=== PATIENT | female | born 1995 | race Two or more races ===

== ENCOUNTER 2023-10-02 12:33 | Observation (INO) | payer MEDICAID, SELFPAY ==
[~2023-10-02] VITALS: Ht 165.1 cm; Wt 77.1 kg
[2023-10-02] MEDS ORDERED: LACTATED RINGER'S 1,000 ML IV ONE (16:00)
[2023-10-02] MEDS ORDERED: PREN1PAK8 PO (16:27)
== END 2023-10-02 16:43 | disposition home or self-care (01) ==
LOC: LDRP 12:33 → UNDOADMOB 12:33 → LDRP 12:51 → UNDODISOB 16:43
PROVIDERS: ADMIT Obstetrics & Gynecology; ATTEND Obstetrics & Gynecology
DX: O69.81X0 Labor and delivery complicated by cord around neck, without compression, not applicable or unspecified (principal); O62.9 Abnormality of forces of labor, unspecified; Z3A.36 36 weeks gestation of pregnancy
CPT/HCPCS: 59025; 76818; 81002; 96360; 96361; G0378

== ENCOUNTER 2023-10-04 12:17 | Observation (INO) | payer SELFPAY ==
[~2023-10-04 12:17] MED LIST: PREN1PAK8 PO
== END 2023-10-04 16:12 | disposition home or self-care (01) ==
LOC: LDRP 12:17 → UNDOADMOB 12:17 → LDRP 14:32 → UNDODISOB 16:12
PROVIDERS: ADMIT Obstetrics & Gynecology; ATTEND Obstetrics & Gynecology
DX: O69.81X0 Labor and delivery complicated by cord around neck, without compression, not applicable or unspecified (principal); O62.9 Abnormality of forces of labor, unspecified; Z3A.36 36 weeks gestation of pregnancy
CPT/HCPCS: 59025; 76818; 81002; 94760; G0378

== ENCOUNTER 2023-10-11 14:00 | Observation (INO) | payer SELFPAY | END 2023-10-11 16:41 | disposition home or self-care (01) | LOC: UNDOADMOB 14:00 → LDRP 14:00 → UNDODISOB 16:41 | PROVIDERS: ADMIT Obstetrics & Gynecology; ATTEND Obstetrics & Gynecology | DX: O62.9 Abnormality of forces of labor, unspecified (principal); Z3A.38 38 weeks gestation of pregnancy | CPT/HCPCS: 59025; 76818; 81002; 94760; G0378 ==

== ENCOUNTER 2023-10-18 15:15 | Observation (INO) | payer SELFPAY | END 2023-10-18 18:00 | disposition home or self-care (01) | LOC: LDRP 15:15 | PROVIDERS: ADMIT Obstetrics & Gynecology; ATTEND Obstetrics & Gynecology | DX: O69.81X0 Labor and delivery complicated by cord around neck, without compression, not applicable or unspecified (principal); Z3A.39 39 weeks gestation of pregnancy; Z87.891 Personal history of nicotine dependence | CPT/HCPCS: 59025; 76818; 81002; 94760; G0378 ==

== ENCOUNTER 2023-10-20 20:27 | Inpatient (IN) | payer SELFPAY ==
[~2023-10-20] VITALS: Ht 170 cm; Wt 97.5 kg
[2023-10-20] MEDS ORDERED: LIDOCAINE 2%HCL (LOCAL ANESTH.) INJ 20ML MDV IJ PRN (21:45)
[2023-10-20] MEDS ORDERED: BUTORPHANOL TARTRATE 2 MG/1 ML VIAL IV PRN ×2 (21:45)
[2023-10-20 22:08] LABS: Urine Bacteria FEW /hpf (None Seen); Urine Blood Negative /uL (Negative); Urine Clarity Clear (Clear); Urine Color Light-Yellow (Yellow); Urine Mucus FEW (None Seen); Urine Protein, UAD Negative (Negative); Urine Specific Gravity 1.013 (1.001-1.035); Urine Urobilinogen Normal (Negative); Urine WBC 1 /hpf (0 - 5); Urine pH 6.5 (5.0-9.0)
[2023-10-20 22:12] LABS: Amphetamine Screen, Urine Neg (NEGATIVE); Barbiturate Scree,Urine Neg (NEGATIVE); Benzodiazephine Screen, Urine Neg (NEGATIVE); Cocaine Screen, Urine Neg (NEGATIVE); Opiate Scree,Urine Neg (NEGATIVE); Phencyclidine Screen, Urine Neg (NEGATIVE)
[2023-10-20 22:26] LABS: Basophils # (auto) 0 10 ^3/uL (0-0.2); Basophils % (auto) 0.3 % (0.0-2.0); Eosinophils # (auto) 0.1 10 ^3/uL (0-0.8); Eosinophils % (auto) 1.1 % (0.0-7.0); Hematocrit 35.3 % (36.0-46.0); Hemoglobin 12.1 g/dL (12.2-16.2); Lymphocytes # (auto) 1.8 10 ^3/uL (0.4-5.4); Lymphocytes % (auto) 22.2 % (10.0-50.0); Mean Corpuscular Hemoglobin 32.1 pg (28.0-32.0); Mean Corpuscular Hgb Conc. 34.2 g/dL (32.0-36.0); Mean Corpuscular Volume 93.6 fL (80.0-100.0); Monocytes # (auto) 0.5 10 ^3/uL (0-1.3); Monocytes % (auto) 6.7 % (0.0-12.0); Neutrophils # (auto) 5.5 10 ^3/uL (1.6-8.6); Neutrophils % (auto) 69.7 % (37.0-80.0); Nucleated Red Blood Cells % 0.1 %; Platelet Count (auto) 196 10^3/uL (140-450); Red Blood Cells 3.77 10^6/uL (4.0-5.20); Red Cell Distribution Width 13.7 % (11.8-14.3)
[2023-10-20 22:42] LABS: INR 0.94 (0.9-1.15); Partial Thromboplastin Time 27.1 SEC (24.5-34.5)
[2023-10-20 22:47] VITALS: BP 113/64; PULSE 78; RESP 16; TEMP 98; O2SAT 97
[2023-10-20 22:47] LABS: Alanine Aminotransferase 11 U/L (7-40); Albumin 3.9 g/dL (3.2-4.8); Alkaline Phosphatase 146 U/L (46-116); Anion Gap 8 (5-15); Aspartate Aminotransferase 10 U/L (13-40); BUN/Creatinine Ratio 12.3 (10.0-20.0); Bilirubin, Total 0.3 mg/dL (0.2-1.0); Blood Urea Nitrogen 7 mg/dL (9-23); Calcium 9.4 mg/dL (8.7-10.4); Carbon Dioxide 21 mmol/L (20-30); Chloride 109 mmol/L (98-107); Glucose 115 mg/dL (74-106); Potassium 3.7 mmol/L (3.5-5.1); Sodium 138 mmol/L (136-145); Total Protein 6.2 g/dL (5.7-8.2)
[2023-10-21] MEDS: LACTATED RINGER'S 1,000 ML IV SCH (00:10)
[2023-10-21 00:26] LABS: Cannabinoid Screen, Urine Neg (NEGATIVE)
[2023-10-21] MEDS: miSOPROStol 50 MCG per PRE-CUT 1/2 TAB PO PRN (01:02)
[2023-10-21 03:00] VITALS: BP 118/59; PULSE 77; RESP 16; TEMP 98.5; O2SAT 97
[2023-10-21] MEDS: WITCH HAZEL-GLYCERIN PAD TOP PRN (04:12)
[2023-10-21] MEDS: PHISODERM TOP SOLN 240ML BTL TOP PRN (04:12)
[2023-10-21] MEDS: DERMOPLAST 60ML BOTTLE TOP PRN (04:12)
[2023-10-21 07:00] VITALS: BP 121/71; PULSE 88; RESP 16; TEMP 98.1; O2SAT 97
[2023-10-21] MEDS: LACT. RINGERS/OXYTOCIN 20UNITS 500 ML IV ONE ×2 (16:30→17:00)
[2023-10-21] MEDS ORDERED: TERBUTALINE SULFATE 1 MG/ML 1ML VIAL SC PRN (16:30)
[2023-10-22] MEDS: DINOPROSTONE 10MG VAG SUPP PV ONE (00:04)
[2023-10-22 18:45] VITALS: BP 126/81; PULSE 82; RESP 16; TEMP 98.5; O2SAT 97
[2023-10-22] MEDS: ePHEDrine SULFATE 50 MG/ML AMP IV ONE (19:00)
[2023-10-22] MEDS: LIDOCAINE HCL 2 %PF INJ 10ML AMP IJ ONE (19:00)
[2023-10-22] MEDS: NALOXONE HCL 0.4 MG/ML VIAL IV ONE (19:00)
[2023-10-22] MEDS: LACTATED RINGER'S 1,000 ML IV ONE (19:22)
[2023-10-22 23:00] VITALS: BP 105/58; PULSE 90; RESP 18; TEMP 98.1; O2SAT 100
[2023-10-22] MEDS: fentaNYL CITRATE 100 MCG/2 ML VL IV ONE (23:30)
[2023-10-22] MEDS: ROPIVACAINE HCL 200 ML ONE (23:32)
[2023-10-22] MEDS ORDERED: TERBUTALINE SULFATE 1 MG/ML 1ML VIAL SC PRN (23:45)
[2023-10-23] VITALS (18 sets, daily range): BP systolic 91–126; BP diastolic 43–65; PULSE 65–111; RESP 12–18; TEMP 98.8–99.8; O2SAT 93–100
[2023-10-23] MEDS: LACT. RINGERS/OXYTOCIN 20UNITS 1,000 ML IV SCH (00:45)
[2023-10-23] MEDS ORDERED: LACTATED RINGER'S 1,000 ML IV SCH (05:30)
[2023-10-23] MEDS: LACTATED RINGER'S 1,000 ML IV ONE (05:30)
[2023-10-23] MEDS: ceFAZolin 2 GM/D5W50ml 50 ML IV ONE (06:39)
[2023-10-23] MEDS: DIPHENOXYLATE W/ATROPINE 2.5 MG TAB PO ONE (06:45)
[2023-10-23] MEDS: LIDOCAINE HCL 2 %PF INJ 10ML AMP IJ ONE (06:53)
[2023-10-23] MEDS ORDERED: MORPHINE SULF PF 5 MG/10 ML VIAL ONE (07:01)
[2023-10-23 07:06] LABS: RPR Non Reactive (Non Reactive)
[2023-10-23] MEDS: TETRACAINE 1% INJ 2 ML VIAL IJ ONE (07:10)
[2023-10-23] MEDS: OXYTOCIN 10UNIT/ML 1ML VIAL ONE (08:00)
[2023-10-23] MEDS ORDERED: MEPERIDINE HCL (25 MG/ML) 1ML VIAL ONE (08:00)
[2023-10-23 08:06] LABS: Rubella Antibodies, IgG 2.81 index (Immune >0.99)
[2023-10-23] MEDS ORDERED: ONDANSETRON HCL 4 MG/2 ML VIAL IV PRN (09:00)
[2023-10-23] MEDS: NALBUPHINE HCL 10 MG/1ml INJECTION SUBCUT ONE (09:00)
[2023-10-23] MEDS ORDERED: NALOXONE HCL 0.4 MG/ML VIAL IV PRN (09:00)
[2023-10-23] MEDS ORDERED: HYDROmorphone HCL 2 MG/ML VL/or syr IV PRN (09:00)
[2023-10-23] MEDS: ONDANSETRON HCL 4 MG/2 ML VIAL IV ONE (09:00)
[2023-10-23] MEDS ORDERED: DexAMETHasone SOD PHOS 10MG/1ML VIAL INJ IV PRN (09:00)
[2023-10-23] MEDS ORDERED: diphenhdrAMINE HCL 50 MG/1 ML VL IV PRN (09:00)
[2023-10-23] MEDS ORDERED: KETOROLAC TROMETH 30 MG/ML 1ML VIAL IV PRN (09:00)
[2023-10-23] MEDS: SODIUM CITR/CITRIC ACID ORAL SOLN 30 ML PO SCH (12:16)
[2023-10-23] MEDS: ceFAZolin 1GM/50ML 50 ML IV SCH (13:52)
[2023-10-23 15:38] LABS: Basophils # (auto) 0 10 ^3/uL (0-0.2); Basophils % (auto) 0.2 % (0.0-2.0); Eosinophils # (auto) 0.1 10 ^3/uL (0-0.8); Eosinophils % (auto) 0.5 % (0.0-7.0); Hematocrit 28.8 % (36.0-46.0); Hemoglobin 9.8 g/dL (12.2-16.2); Lymphocytes # (auto) 1.7 10 ^3/uL (0.4-5.4); Lymphocytes % (auto) 13.9 % (10.0-50.0); Mean Corpuscular Hemoglobin 32.1 pg (28.0-32.0); Mean Corpuscular Hgb Conc. 34.2 g/dL (32.0-36.0); Monocytes # (auto) 0.9 10 ^3/uL (0-1.3); Monocytes % (auto) 7.8 % (0.0-12.0); Neutrophils # (auto) 9.3 10 ^3/uL (1.6-8.6); Neutrophils % (auto) 77.6 % (37.0-80.0); Platelet Count (auto) 162 10^3/uL (140-450); Red Blood Cells 3.06 10^6/uL (4.0-5.20); Red Cell Distribution Width 13.8 % (11.8-14.3); White Blood Cell 11.9 10^3/uL (4.4-10.8)
[2023-10-23] MEDS: ACETAMINOPHEN IV 1000 MG/100ML (10MG/ML) IV PRN (20:35)
[2023-10-23 21:52] LABS: Basophils # (auto) 0 10 ^3/uL (0-0.2); Basophils % (auto) 0.3 % (0.0-2.0); Eosinophils # (auto) 0.1 10 ^3/uL (0-0.8); Eosinophils % (auto) 0.8 % (0.0-7.0); Hematocrit 29.7 % (36.0-46.0); Hemoglobin 10.2 g/dL (12.2-16.2); Lymphocytes # (auto) 1.6 10 ^3/uL (0.4-5.4); Lymphocytes % (auto) 14.6 % (10.0-50.0); Mean Corpuscular Hemoglobin 32.1 pg (28.0-32.0); Mean Corpuscular Hgb Conc. 34.3 g/dL (32.0-36.0); Mean Corpuscular Volume 93.7 fL (80.0-100.0); Monocytes # (auto) 0.9 10 ^3/uL (0-1.3); Monocytes % (auto) 8.4 % (0.0-12.0); Neutrophils # (auto) 8.3 10 ^3/uL (1.6-8.6); Neutrophils % (auto) 75.9 % (37.0-80.0); Platelet Count (auto) 162 10^3/uL (140-450); Red Blood Cells 3.17 10^6/uL (4.0-5.20); Red Cell Distribution Width 14.1 % (11.8-14.3); White Blood Cell 10.9 10^3/uL (4.4-10.8)
[2023-10-23] MEDS ORDERED: FERRCAP9 PO (21:52)
[2023-10-23] MEDS ORDERED: IBUP-1456 PO (21:52)
[2023-10-23] MEDS ORDERED: HYDR-4902 PO (21:52)
[2023-10-23] MEDS ORDERED: DOCU-94 PO (21:52)
[2023-10-24] VITALS (11 sets, daily range): BP systolic 94–126; BP diastolic 53–76; PULSE 67–105; RESP 16–18; TEMP 97.7–98.8; O2SAT 93–100
[2023-10-24] MEDS ORDERED: BISACODYL 10 MG RECT SUPP PR PRN (06:45)
[2023-10-24] MEDS ORDERED: HYDROcodone-ACET 5/325MG TAB PO PRN (06:45)
[2023-10-24] MEDS: HYDROcodone-ACET 5/325MG TAB PO PRN (07:19)
[2023-10-24 09:38] LABS: Basophils # (auto) 0 10 ^3/uL (0-0.2); Basophils % (auto) 0.1 % (0.0-2.0); Eosinophils # (auto) 0.1 10 ^3/uL (0-0.8); Eosinophils % (auto) 0.8 % (0.0-7.0); Hematocrit 29.6 % (36.0-46.0); Hemoglobin 10.3 g/dL (12.2-16.2); Lymphocytes # (auto) 1.2 10 ^3/uL (0.4-5.4); Lymphocytes % (auto) 10.6 % (10.0-50.0); Mean Corpuscular Hemoglobin 32.3 pg (28.0-32.0); Mean Corpuscular Hgb Conc. 34.7 g/dL (32.0-36.0); Mean Corpuscular Volume 93.1 fL (80.0-100.0); Monocytes # (auto) 0.7 10 ^3/uL (0-1.3); Monocytes % (auto) 6.4 % (0.0-12.0); Neutrophils # (auto) 8.9 10 ^3/uL (1.6-8.6); Neutrophils % (auto) 82.1 % (37.0-80.0); Platelet Count (auto) 168 10^3/uL (140-450); Red Blood Cells 3.18 10^6/uL (4.0-5.20); White Blood Cell 10.8 10^3/uL (4.4-10.8)
[2023-10-24] MEDS: DOCUSATE SOD 100 MG CAP PO SCH (10:49)
[2023-10-24] MEDS: IBUPROFEN 800 MG TAB PO PRN (10:50)
[2023-10-24] MEDS: SIMETHICONE 80 MG CHEWABLE TABLET PO SCH (10:50)
[2023-10-24] MEDS: DOCUSATE CALCIUM 240 MG CAP PO SCH (10:50)
[2023-10-24] MEDS ORDERED: ACETAMINOPHEN 325 MG TAB PO PRN (18:00)
[2023-10-25 03:00] VITALS: BP 122/65; PULSE 83; RESP 16; TEMP 98; O2SAT 98
[2023-10-25 07:10] VITALS: RESP 15
[2023-10-25 11:08] VITALS: BP 121/72; PULSE 86; RESP 15; TEMP 98.6; O2SAT 97
== END 2023-10-25 16:55 | disposition home or self-care (01) | DRG 787 ==
LOC: LDRP 20:27 → OBSVTOIN 20:27 → LDRP 20:52
PROVIDERS: ADMIT Obstetrics & Gynecology; ATTEND Obstetrics & Gynecology
PROC: 10907ZC Drainage of Amniotic Fluid, Therapeutic from Products of Conception, Via Natural or Artificial Opening (ICD-10-PCS; 2023-10-22)
PROC: 10D00Z1 Extraction of Products of Conception, Low, Open Approach (ICD-10-PCS; principal; 2023-10-23 07:04)
DX: O69.81X0 Labor and delivery complicated by cord around neck, without compression, not applicable or unspecified (principal); O72.1 Other immediate postpartum hemorrhage; R71.0 Precipitous drop in hematocrit; O61.9 Failed induction of labor, unspecified; O62.0 Primary inadequate contractions; O76 Abnormality in fetal heart rate and rhythm complicating labor and delivery; Z37.0 Single live birth; Z3A.39 39 weeks gestation of pregnancy
CPT/HCPCS: 36415; 59025; 59200; 62282; 76818; 80053; 80307; 81001; 85025; 85610; 85730; 86592; 86703; 86762; 86803; 86850; 86900; 86901; 87340; 94760; 94762; 96360; 96361; 96366; G0378; J0131; J2590